=== PATIENT | male | born 1960 ===

== ENCOUNTER → 2016-03-15 | Outpatient (CLI) | payer OTHER ==
--- NOTE | 2016-03-16 05:23 | EEG ---
DATE OF SERVICE: 03/15/2016 INDICATIONS FOR EXAMINATION: This patient is a 55-year-old male being evaluated for syncope versus seizure. Patient with episode of uncontrolled arm movement and twitching. AGE: 55Y EEG FINDINGS: A routine 21-channel, awake digital EEG recording was accomplished utilizing the 10 to 20 international system with bipolar and referential montages. The background activity in the most alert resting state consists of a low to medium amplitude, fairly well-developed and well-sustained 7 to 8 Hz activity over the posterior head regions. This posterior rhythm attenuates to eye opening. There is a small amount of low amplitude 18 to 20 Hz beta activity seen maximally over the anterior head regions. Muscle and movement artifact was observed on a few occasions during the tracing. Hyperventilation was not performed. Photic stimulation at flash frequencies of 2 to 30 Hz produced a minimal occipital driving response. No epileptiform discharges were seen. Towards the latter portion of the tracing, the patient does drift into spontaneous drowsiness. IMPRESSION: This EEG is within normal limits for the patient's age. The EEG failed to reveal any focal, lateralized or epileptiform abnormalities. Clinical correlation is recommended.
== END | disposition home or self-care (01) ==
LOC: NEUROMAIN 12:54
PROVIDERS: ATTEND Psychiatry & Neurology Neurology
DX: R55 Syncope and collapse (principal)
CPT/HCPCS: 95819

== ENCOUNTER 2016-03-19 19:31 | Emergency (ER) | payer OTHER ==
[2016-03-19] MEDS ORDERED: SODIUM CHLORIDE 0.9% 1,000 ML IV STA (19:47)
[2016-03-19] MEDS ORDERED: LORazepam 2 MG/ML SYRINGE IV STA (19:47)
[2016-03-19 19:49] VITALS: RESP 20
[2016-03-19 20:05] LABS: Basophils # (A) 0.1 k/uL (0-0.2); Basophils % (A) 1 %; CH 29.9; Eosinophils # (A) 0.3 k/uL (0-0.7); Eosinophils % (A) 2 %; HCT 45.7 % (39.0-53.0); HDW 2.53; HGB 15.4 gm/dL (13.0-17.5); Luc # (Auto) 0.49; Luc % (Auto) 4; Lymphocytes # (A) 5.1 k/uL (1.0-4.8); Lymphocytes % (A) 44 %; MCHC 33.7 g/dL (31.0-37.0); MCV 85.9 fL (80.0-100.0); Monocytes # (A) 0.7 k/uL (0-1.0); Monocytes % (A) 6 %; Neutrophils # (A) 5.1 k/uL (1.3-7.7); Neutrophils % (A) 43 %; RBC 5.31 m/uL (4.30-5.90); RDW 13.4 % (11.5-15.5); WBC 11.7 k/uL (3.8-10.6); WBC (Perox) 11.94
--- NOTE | 2016-03-19 20:07 | ED ---
General Adult HPI - General Chief complaint: Chest Pain Stated complaint: tremors Time Seen by Provider: 03/19/16 19:45 Source: patient, EMS Mode of arrival: EMS Limitations: no limitations - History of Present Illness Initial comments: 55-year-old male she brought in by EMS shortly before he came in he began again having jerking on the right side. States this third episode he was admitted saw neurologist up in the thumb was told it was anxiety not a seizure. He has had no head injury no headaches no dizziness is had previous computed tomography scan. Has no nausea no vomiting no diarrhea. No chest pain currently has had some cough. - Related Data Home Medications Medication Instructions Recorded Confirmed ALPRAZolam [Xanax] 0.25 mg PO TID PRN 03/19/16 03/19/16 Aspirin [Adult Low Dose Aspirin EC] 81 mg PO DAILY 03/19/16 03/19/16 Citalopram Hydrobromide [CeleXA] 40 mg PO DAILY 03/19/16 03/19/16 Gemfibrozil [Lopid] 600 mg PO AC-BID 03/19/16 03/19/16 Lansoprazole [Prevacid] 15 mg PO DAILY 03/19/16 03/19/16 Lisinopril-Hctz 20-12.5 mg 1 tab PO DAILY 03/19/16 03/19/16 [Zestoretic 20-12.5] metFORMIN HCL ER [Glucophage Xr] 500 mg PO PC-SUPPER 03/19/16 03/19/16 Previous Rx's Medication Instructions Recorded Amoxicillin 500 mg PO Q8H #30 capsule 03/19/16 LORazepam [Ativan] 1 mg PO TID PRN #20 tab 03/19/16 Allergies Allergy/AdvReac Type Severity Reaction Status Date / Time No Known Allergies Allergy Verified 03/19/16 20:19 Review of Systems ROS Statement: Those systems with pertinent positive or pertinent negative responses have been documented in the HPI. ROS Other: All systems not noted in ROS Statement are negative. Constitutional: Denies: fever Eyes: Denies: eye discharge ENT: Denies: ear pain Respiratory: Reports: cough Cardiovascular: Denies: chest pain Gastrointestinal: Denies: abdominal pain, nausea, diarrhea Genitourinary: Denies: urgency, frequency Skin: Denies: rash Neurological: Denies: headache, weakness, numbness Psychiatric: Denies: anxiety, depression Hematological/Lymphatic: Denies: easy bleeding, easy bruising Past Medical History Past Medical History: Diabetes Mellitus History of Any Multi-Drug Resistant Organisms: None Reported Past Surgical History: Unable to Obtain Past Psychological History: Panic Disorder Smoking Status: Former smoker Past Alcohol Use History: None Reported Past Drug Use History: None Reported General Exam Limitations: no limitations General appearance: alert Head exam: Present: atraumatic Eye exam: Present: normal appearance, PERRL, EOMI ENT exam: Present: normal oropharynx, mucous membranes moist Neck exam: Present: normal inspection Respiratory exam: Present: normal lung sounds bilaterally Cardiovascular Exam: Present: regular rate, normal heart sounds GI/Abdominal exam: Present: soft. Absent: tenderness Back exam: Present: normal inspection Neurological exam: Present: alert, CN II-XII intact, other (Final tremoring of the right arm and leg he is fully awake) Psychiatric exam: Present: normal affect, normal mood Skin exam: Present: warm, dry Course Vital Signs 03/19/16 03/19/16 03/19/16 19:46 20:01 20:20 Temperature 98.1 F Pulse Rate 123 H 94 84 Respiratory 20 20 20 Rate Blood Pressure 148/108 129/60 123/65 O2 Sat by Pulse 98 98 97 Oximetry Medical Decision Making - Medical Decision Making Patient's tremor or focal seizure stopped with Ativan. He's had a CAT scan at [place] seen a neurologist who discussed with family he most likely needs an MRI his EEG done this week was normal could be a pseudoseizure as well. Was sent home with treatment for his bronchitis and Ativan. - Lab Data Result diagrams: 03/19/16 19:46 03/19/16 19:46 Lab Results 03/19/16 03/19/16 Range/Units 19:46 19:46 WBC 11.7 H (3.8-10.6) k/uL RBC 5.31 (4.30-5.90) m/uL Hgb 15.4 (13.0-17.5) gm/dL Hct 45.7 (39.0-53.0) % MCV 85.9 (80.0-100.0) fL MCH 29.0 (25.0-35.0) pg MCHC 33.7 (31.0-37.0) g/dL RDW 13.4 (11.5-15.5) % Plt Count 369 (150-450) k/uL Neutrophils % 43 % Lymphocytes % 44 % Monocytes % 6 % Eosinophils % 2 % Basophils % 1 % Neutrophils # 5.1 (1.3-7.7) k/uL Lymphocytes # 5.1 H (1.0-4.8) k/uL Monocytes # 0.7 (0-1.0) k/uL Eosinophils # 0.3 (0-0.7) k/uL Basophils # 0.1 (0-0.2) k/uL Sodium 138 (137-145) mmol/L Potassium 4.5 (3.5-5.1) mmol/L Chloride 99 (98-107) mmol/L Carbon Dioxide 22 (22-30) mmol/L Anion Gap 17 mmol/L BUN 18 (9-20) mg/dL Creatinine 0.96 (0.66-1.25) mg/dL Est GFR (MDRD) Af Amer >60 (>60 ml/min/1.73 sqM) Est GFR (MDRD) Non-Af >60 (>60 ml/min/1.73 sqM) Glucose 98 (74-99) mg/dL Calcium 10.7 H (8.4-10.2) mg/dL Total Bilirubin 0.5 (0.2-1.3) mg/dL AST 25 (17-59) U/L ALT 47 (21-72) U/L Alkaline Phosphatase 73 (38-126) U/L Total Protein 8.1 (6.3-8.2) g/dL Albumin 4.9 (3.5-5.0) g/dL - EKG Data -: EKG Interpreted by Me 03/19/16 20:07 EKG 03/19/20161958 ventricular rate 92 bpm, [place] interval 126 ms, QRS duration 76 ms QT interval 334 ms normal sinus rhythm normal ECG per Disposition Clinical Impression: Tremor, Bronchitis Disposition: HOME SELF-CARE Condition: Good Instructions: Tremors (ED), Acute Bronchitis (ED) Prescriptions: Amoxicillin 500 mg PO Q8H #30 capsule LORazepam [Ativan] 1 mg PO TID PRN #20 tab PRN Reason: Seizures Time of Disposition: 21:16
--- NOTE | 2016-03-19 20:16 | XR ---
EXAMINATION TYPE: XR chest 2V DATE OF EXAM: 03/19/2016 8:05 PM COMPARISON: None HISTORY: 55-year-old male with cough TECHNIQUE: AP and lateral views FINDINGS: Heart is upper limits of normal in size. Lung volumes are low with crowded vascular markings. Mild pe ribronchial cuffing is noted. No consolidation or pleural effusion. IMPRESSION: Hypoventilatory changes. Also, there is peribronchial cuffing which could represent bronchitis or chr onic asthma.
[2016-03-19 20:25] LABS: ALT 47 U/L (21-72); AST 25 U/L (17-59); Alkaline Phosphatase 73 U/L (38-126); Anion Gap 17 mmol/L; Blood Urea Nitrogen 18 mg/dL (9-20); Calcium 10.7 mg/dL (8.4-10.2); Carbon Dioxide 22 mmol/L (22-30); Chloride 99 mmol/L (98-107); Glucose 98 mg/dL (74-99); Non-African American GFR(MDRD) >60 (>60 ml/min/1.73 sqM); Potassium 4.5 mmol/L (3.5-5.1); Sodium 138 mmol/L (137-145); Total Bilirubin 0.5 mg/dL (0.2-1.3); Total Protein 8.1 g/dL (6.3-8.2)
[2016-03-19 21:42] VITALS: BP 120/50; PULSE 86; TEMP 98.5
== END 2016-03-19 21:42 | disposition home or self-care (01) ==
LOC: EC 19:31
DX: R25.1 Tremor, unspecified (principal); J40 Bronchitis, not specified as acute or chronic; E11.9 Type 2 diabetes mellitus without complications; F41.0 Panic disorder [episodic paroxysmal anxiety]; Z79.82 Long term (current) use of aspirin; Z79.899 Other long term (current) drug therapy; Z79.84 Long term (current) use of oral hypoglycemic drugs; Z87.891 Personal history of nicotine dependence
CPT/HCPCS: 36415; 93005; 80053; 85025; 71020; 96374; 96361 ×2; 99285; J2060

== ENCOUNTER 2016-09-28 16:41 | Emergency (ER) | payer OTHER ==
[2016-09-28] MEDS ORDERED: SODIUM CHLORIDE 0.9% 1,000 ML IV ONE (17:55)
[2016-09-28] MEDS ORDERED: ONDANSETRON 4 MG/2 ML VIAL IVP STA (17:55)
--- NOTE | 2016-09-28 17:56 | ED ---
GI Bleed HPI - General Chief complaint: GI Bleed Stated complaint: Abd Pain Time Seen by Provider: 09/28/16 17:25 Source: patient, RN notes reviewed Mode of arrival: ambulatory Limitations: no limitations - History of Present Illness Initial comments: Patient is a 56-year-old male since emergency room for evaluation of rectal bleeding. 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 Patient states he had the "band procedure" done about 8 years ago. Patient states he hasn't had any issues until the past 3 days. Patient states every time he make a bowel movement bright red blood clots are in the stool. patient states he's had diarrhea for the past 2 days. Patient states today he been unable to have a bowel movement. Patient states all he is passing is bright red blood clots. Patient states she has a history of cholecystectomy. Patient denies any other history of abdominal surgeries. Patient denies recent travel outside the country or trying new foods. Patient denies fevers or chills. Patient states he has been nauseous but denies vomiting. Patient denies headache or dizziness. Patient denies chest pain or shortness of breath. Patient denies fevers or chills. Patient denies melena. Patient states he is having extreme rectal pain every time he makes a bowel movement. - Related Data Home Medications Medication Instructions Recorded Confirmed Aspirin [Adult Low Dose Aspirin EC] 81 mg PO DAILY 03/19/16 09/28/16 Citalopram Hydrobromide [CeleXA] 40 mg PO DAILY 03/19/16 09/28/16 Gemfibrozil [Lopid] 600 mg PO AC-BID 03/19/16 09/28/16 Lansoprazole [Prevacid] 15 mg PO DAILY 03/19/16 09/28/16 metFORMIN HCL ER [Glucophage Xr] 500 mg PO PC-SUPPER 03/19/16 09/28/16 ALPRAZolam [Xanax] 0.25 mg PO TID PRN 09/28/16 09/28/16 HYDROcodone/APAP 7.5-325MG [[place] 0.5 - 1 tab PO Q4H PRN 09/28/16 09/28/16 7.5-325] Lisinopril [Zestril] 20 mg PO DAILY 09/28/16 09/28/16 lamoTRIgine [LaMICtal] 25 mg PO BID 09/28/16 09/28/16 Previous Rx's Medication Instructions Recorded Hydrocortisone Suppository 25 mg RECTAL BID PRN #10 supp 09/28/16 [Anusol-Hc] Allergies Allergy/AdvReac Type Severity Reaction Status Date / Time No Known Allergies Allergy Verified 09/28/16 18:39 Review of Systems ROS Statement: Those systems with pertinent positive or pertinent negative responses have been documented in the HPI. ROS Other: All systems not noted in ROS Statement are negative. Past Medical History Past Medical History: Diabetes Mellitus, Hyperlipidemia, Hypertension History of Any Multi-Drug Resistant Organisms: None Reported Past Surgical History: Cholecystectomy Additional Past Surgical History / Comment(s): hemmeroidectomy Past Psychological History: Depression, Panic Disorder Smoking Status: Former smoker Past Alcohol Use History: None Reported Past Drug Use History: None Reported General Exam - General Exam Comments Initial Comments: Laying in exam room, no acute distress. Limitations: no limitations General appearance: alert, in no apparent distress Head exam: Present: atraumatic, normocephalic, normal inspection Eye exam: Present: normal appearance ENT exam: Present: normal exam Neck exam: Present: normal inspection Respiratory exam: Present: normal lung sounds bilaterally. Absent: respiratory distress Cardiovascular Exam: Present: regular rate, normal rhythm, normal heart sounds GI/Abdominal exam: Present: soft, normal bowel sounds. Absent: distended, tenderness, guarding, rebound, rigid Rectal exam: Present: normal rectal tone. Absent: hemorrhoids Extremities exam: Present: normal inspection Back exam: Present: normal inspection Neurological exam: Present: alert, oriented X3, CN II-XII intact, normal gait Psychiatric exam: Present: normal affect, normal mood Skin exam: Present: warm, dry, intact, normal color. Absent: rash Course Vital Signs 09/28/16 09/28/16 09/28/16 16:48 18:47 19:17 Temperature 99.1 F Pulse Rate 83 72 80 Respiratory 18 16 16 Rate Blood Pressure 132/71 113/56 115/56 O2 Sat by Pulse 98 95 94 L Oximetry 09/28/16 20:23 Temperature 98.9 F Pulse Rate 73 Respiratory 18 Rate Blood Pressure 120/65 O2 Sat by Pulse 97 Oximetry Medical Decision Making - Medical Decision Making Patient's a 56-year-old male presents emergency room for evaluation of rectal bleeding. Patient complaining of extreme rectal pain. Patient given Anusol. Lab work shows no concerning findings. Patient may have a fissure. Patient advised to follow-up with general surgeon. Patient be sent home with Anusol suppositories. Patient states he understands everything that was discussed with him. Return parameters discussed. Case discussed with Dr. Lozano. - Lab Data Result diagrams: 09/28/16 18:05 09/28/16 18:05 Lab Results 09/28/16 09/28/16 09/28/16 Range/Units 17:57 17:57 18:05 WBC 8.5 (3.8-10.6) k/uL RBC 4.84 (4.30-5.90) m/uL Hgb 14.7 (13.0-17.5) gm/dL Hct 41.8 (39.0-53.0) % MCV 86.3 (80.0-100.0) fL MCH 30.4 (25.0-35.0) pg MCHC 35.2 (31.0-37.0) g/dL RDW 14.3 (11.5-15.5) % Plt Count 359 (150-450) k/uL Neutrophils % 49 % Lymphocytes % 36 % Monocytes % 8 % Eosinophils % 4 % Basophils % 1 % Neutrophils # 4.2 (1.3-7.7) k/uL Lymphocytes # 3.1 (1.0-4.8) k/uL Monocytes # 0.7 (0-1.0) k/uL Eosinophils # 0.3 (0-0.7) k/uL Basophils # 0.1 (0-0.2) k/uL PT (9.0-12.0) sec INR (<1.2) APTT (22.0-30.0) sec Sodium (137-145) mmol/L Potassium (3.5-5.1) mmol/L Chloride (98-107) mmol/L Carbon Dioxide (22-30) mmol/L Anion Gap mmol/L BUN (9-20) mg/dL Creatinine (0.66-1.25) mg/dL Est GFR (MDRD) Af Amer (>60 ml/min/1.73 sqM) Est GFR (MDRD) Non-Af (>60 ml/min/1.73 sqM) Glucose (74-99) mg/dL Calcium (8.4-10.2) mg/dL Total Bilirubin (0.2-1.3) mg/dL AST (17-59) U/L ALT (21-72) U/L Alkaline Phosphatase (38-126) U/L Total Protein (6.3-8.2) g/dL Albumin (3.5-5.0) g/dL Urine Color Yellow Urine Appearance Clear (Clear) Urine pH 5.5 (5.0-8.0) Ur Specific [place] 1.022 (1.001-1.035) Urine Protein Negative (Negative) Urine Glucose (UA) Negative (Negative) Urine Ketones Negative (Negative) Urine Blood Negative (Negative) Urine Nitrite Negative (Negative) Urine Bilirubin Negative (Negative) Urine Urobilinogen <2.0 (<2.0) mg/dL Ur Leukocyte Esterase Negative (Negative) Stool Occult Blood Positive (Negative) 09/28/16 09/28/16 Range/Units 18:05 18:05 WBC (3.8-10.6) k/uL RBC (4.30-5.90) m/uL Hgb (13.0-17.5) gm/dL Hct (39.0-53.0) % MCV (80.0-100.0) fL MCH (25.0-35.0) pg MCHC (31.0-37.0) g/dL RDW (11.5-15.5) % Plt Count (150-450) k/uL Neutrophils % % Lymphocytes % % Monocytes % % Eosinophils % % Basophils % % Neutrophils # (1.3-7.7) k/uL Lymphocytes # (1.0-4.8) k/uL Monocytes # (0-1.0) k/uL Eosinophils # (0-0.7) k/uL Basophils # (0-0.2) k/uL PT 10.4 (9.0-12.0) sec INR 1.0 (<1.2) APTT 25.0 (22.0-30.0) sec Sodium 142 (137-145) mmol/L Potassium 4.3 (3.5-5.1) mmol/L Chloride 105 (98-107) mmol/L Carbon Dioxide 24 (22-30) mmol/L Anion Gap 13 mmol/L BUN 21 H (9-20) mg/dL Creatinine 0.80 (0.66-1.25) mg/dL Est GFR (MDRD) Af Amer >60 (>60 ml/min/1.73 sqM) Est GFR (MDRD) Non-Af >60 (>60 ml/min/1.73 sqM) Glucose 127 H (74-99) mg/dL Calcium 9.9 (8.4-10.2) mg/dL Total Bilirubin 0.3 (0.2-1.3) mg/dL AST 24 (17-59) U/L ALT 47 (21-72) U/L Alkaline Phosphatase 111 (38-126) U/L Total Protein 7.3 (6.3-8.2) g/dL Albumin 4.3 (3.5-5.0) g/dL Urine Color Urine Appearance (Clear) Urine pH (5.0-8.0) Ur Specific [place] (1.001-1.035) Urine Protein (Negative) Urine Glucose (UA) (Negative) Urine Ketones (Negative) Urine Blood (Negative) Urine Nitrite (Negative) Urine Bilirubin (Negative) Urine Urobilinogen (<2.0) mg/dL Ur Leukocyte Esterase (Negative) Stool Occult Blood (Negative) - Radiology Data Radiology results: report reviewed, image reviewed Disposition Clinical Impression: Rectal bleeding Disposition: HOME SELF-CARE Condition: Good Instructions: Rectal Bleeding (ED) Additional Instructions: Use Loni-kateryna as needed. Sitz baths. Take stool softener daily. Please follow up with general surgeon or primary care provider. If any new symptom arises or symptoms worsen, return to ER as soon as possible. Prescriptions: Hydrocortisone Suppository [Anusol-Hc] 25 mg RECTAL BID PRN #10 supp PRN Reason: Pain Referrals: Amor Chavez MD [Primary Care Provider] - 1-2 days Nikita Lutz MD [STAFF PHYSICIAN] - 1-2 days Time of Disposition: 19:52
[2016-09-28 18:20] LABS: Basophils # (A) 0.1 k/uL (0-0.2); Basophils % (A) 1 %; CHCM 34.9; Eosinophils # (A) 0.3 k/uL (0-0.7); Eosinophils % (A) 4 %; HCT 41.8 % (39.0-53.0); HDW 2.74; HGB 14.7 gm/dL (13.0-17.5); Luc % (Auto) 2; Lymphocytes # (A) 3.1 k/uL (1.0-4.8); Lymphocytes % (A) 36 %; MCH 30.4 pg (25.0-35.0); MCHC 35.2 g/dL (31.0-37.0); MCV 86.3 fL (80.0-100.0); Mean Platelet Volume 7.7; Monocytes # (A) 0.7 k/uL (0-1.0); Monocytes % (A) 8 %; Neutrophils # (A) 4.2 k/uL (1.3-7.7); Neutrophils % (A) 49 %; RBC 4.84 m/uL (4.30-5.90); RDW 14.3 % (11.5-15.5); WBC 8.5 k/uL (3.8-10.6); WBC (Perox) 8.16
[2016-09-28 18:21] LABS: Appearance,Urine Clear (Clear); Bilirubin,Urine Negative (Negative); Glucose,Urine (UA) Negative (Negative); Ketones,Urine Negative (Negative); Leukocyte Esterase,Urine Negative (Negative); Nitrite,Urine Negative (Negative); PH, Urine 5.5 (5.0-8.0); Protein,Urine Negative (Negative); Specific Gravity,Urine 1.022 (1.001-1.035); UA Billing (MACRO vs. MICRO) CHEM; Urobilinogen,Urine <2.0 mg/dL (<2.0)
[2016-09-28 18:28] LABS: ALT 47 U/L (21-72); AST 24 U/L (17-59); Alkaline Phosphatase 111 U/L (38-126); Anion Gap 13 mmol/L; Blood Urea Nitrogen 21 mg/dL (9-20); Calcium 9.9 mg/dL (8.4-10.2); Carbon Dioxide 24 mmol/L (22-30); Chloride 105 mmol/L (98-107); Glucose 127 mg/dL (74-99); Non-African American GFR(MDRD) >60 (>60 ml/min/1.73 sqM); Potassium 4.3 mmol/L (3.5-5.1); Sodium 142 mmol/L (137-145); Total Bilirubin 0.3 mg/dL (0.2-1.3); Total Protein 7.3 g/dL (6.3-8.2)
[2016-09-28 18:30] LABS: Prothrombin Time 10.4 sec (9.0-12.0)
--- NOTE | 2016-09-28 18:34 | XR ---
EXAMINATION TYPE: XR KUB DATE OF EXAM: 09/28/2016 COMPARISON: NONE HISTORY: Pain TECHNIQUE: Single supine KUB image of the abdomen is obtained FINDINGS: Small bowel demonstrates no evidence for dilatation or air fluid levels. Gas and fecal material is seen in non-distended colon. No convincing evidence for pneumoperitoneum. No unusual calcifications. The lung bases are clear. The osseous structures are intact. IMPRESSION: 1. Overall nonobstructive bowel gas pattern.
[2016-09-28] MEDS ORDERED: HYDROCORTISONE SUPPOSITORY 25 MG SUPP RECTAL STA (19:46)
[2016-09-28 20:17] VITALS: RESP 18; TEMP 98.9
[2016-09-28 20:24] VITALS: BP 120/65; PULSE 73
== END 2016-09-28 20:14 | disposition home or self-care (01) ==
LOC: EC 16:41
DX: K62.5 Hemorrhage of anus and rectum (principal); E11.9 Type 2 diabetes mellitus without complications; E78.5 Hyperlipidemia, unspecified; I10 Essential (primary) hypertension; F32.9 Major depressive disorder, single episode, unspecified; Z90.49 Acquired absence of other specified parts of digestive tract; Z87.891 Personal history of nicotine dependence; Z79.82 Long term (current) use of aspirin; Z79.84 Long term (current) use of oral hypoglycemic drugs; Z79.899 Other long term (current) drug therapy
CPT/HCPCS: 99284; 96374; 36415; 80053; 85025; 85610; 85730; 82272; 81003; 87086; 74000; J2405

== ENCOUNTER 2017-01-03 12:10 | Observation (INO) | payer OTHER ==
[2017-01-03] MEDS ORDERED: SODIUM CHLORIDE 0.9% 1,000 ML IV STA (12:15)
[2017-01-03] MEDS ORDERED: MORPHINE SULFATE 10 MG/ML SYRINGE IVP STA (12:24)
--- NOTE | 2017-01-03 12:25 | ED ---
General Adult HPI - General Stated complaint: Chest Pain Time Seen by Provider: 01/03/17 12:14 Source: patient, EMS, RN notes reviewed, old records reviewed - History of Present Illness Initial comments: 56-year-old male presents from outpatient surgical Center with chief complaint of chest pain. Patient was undergoing outpatient operation for anal fissures. After he awoke from the procedure, he had chest pain, describes it as bilateral and substernal chest pressure and heaviness. Also complains of some epigastric pain. This pain is associated with shortness of breath. No nausea, no vomiting. Patient denies any diaphoresis. Denies lightheadedness. Patient is uncertain if he was intubated for the procedure. Patient denies any previous heart history. He does have a history of hypertension and diabetes. - Related Data Home Medications Medication Instructions Recorded Confirmed Gemfibrozil [Lopid] 600 mg PO AC-BID 03/19/16 01/03/17 Lansoprazole [Prevacid] 15 mg PO DAILY 03/19/16 01/03/17 metFORMIN HCL ER [Glucophage Xr] 500 mg PO PC-SUPPER 03/19/16 01/03/17 Lisinopril [Zestril] 20 mg PO DAILY 09/28/16 01/03/17 Calcium Carbonate [Calcium] 600 mg PO DAILY 01/03/17 01/03/17 Magnesium 200 mg PO DAILY 01/03/17 01/03/17 Allergies Allergy/AdvReac Type Severity Reaction Status Date / Time No Known Allergies Allergy Verified 01/03/17 13:16 Review of Systems ROS Statement: Those systems with pertinent positive or pertinent negative responses have been documented in the HPI. ROS Other: All systems not noted in ROS Statement are negative. Past Medical History Past Medical History: Diabetes Mellitus, Hyperlipidemia, Hypertension History of Any Multi-Drug Resistant Organisms: None Reported Past Surgical History: Cholecystectomy Additional Past Surgical History / Comment(s): hemmeroidectomy Past Psychological History: Depression, Panic Disorder Smoking Status: Former smoker Past Alcohol Use History: None Reported Past Drug Use History: None Reported General Exam General appearance: alert, in no apparent distress Head exam: Present: atraumatic, normocephalic Eye exam: Present: normal appearance, PERRL ENT exam: Present: normal exam Neck exam: Present: normal inspection. Absent: tenderness, meningismus Respiratory exam: Present: normal lung sounds bilaterally. Absent: respiratory distress, wheezes Cardiovascular Exam: Present: regular rate, normal rhythm GI/Abdominal exam: Present: soft, tenderness (Epigastric tenderness to palpation ). Absent: distended, guarding, rebound Extremities exam: Present: normal inspection, normal capillary refill. Absent: pedal edema Neurological exam: Present: alert, oriented X3. Absent: motor sensory deficit Psychiatric exam: Present: normal affect, normal mood Skin exam: Present: warm, dry, intact. Absent: cyanosis, diaphoretic Course Vital Signs 01/03/17 01/03/17 12:15 13:30 Temperature 96.9 F L Pulse Rate 79 80 Respiratory 18 18 Rate Blood Pressure 125/74 120/60 O2 Sat by Pulse 97 97 Oximetry - Reevaluation(s) Reevaluation #1: 01/03/17 13:52 On reevaluation, patient is chest pain-free EKG Findings - EKG Comments: EKG Findings:: EKG shows normal sinus rhythm, no ST segment elevation or depression, ventricular rate 75, purulent 138, QRS duration 76, QTC 417 Medical Decision Making - Medical Decision Making 56-year-old male presenting with chest pain from outpatient surgery center. EKG shows no ST segment elevation or depression. Laboratory studies reveal magnesium 1.5 which is replaced. Troponin is negative. Chest x-ray shows cardiomegaly, no acute findings. Patient will be placed in observation for chest pain rule out. - Lab Data Result diagrams: 01/03/17 12:24 01/03/17 12:24 Lab Results 01/03/17 01/03/17 01/03/17 Range/Units 12:24 12:24 12:24 WBC 9.1 (3.8-10.6) k/uL RBC 4.88 (4.30-5.90) m/uL Hgb 14.3 (13.0-17.5) gm/dL Hct 43.2 (39.0-53.0) % MCV 88.4 (80.0-100.0) fL MCH 29.2 (25.0-35.0) pg MCHC 33.1 (31.0-37.0) g/dL RDW 13.3 (11.5-15.5) % Plt Count 285 (150-450) k/uL Neutrophils % 66 % Lymphocytes % 24 % Monocytes % 7 % Eosinophils % 1 % Basophils % 0 % Neutrophils # 6.0 (1.3-7.7) k/uL Lymphocytes # 2.2 (1.0-4.8) k/uL Monocytes # 0.6 (0-1.0) k/uL Eosinophils # 0.1 (0-0.7) k/uL Basophils # 0.0 (0-0.2) k/uL PT (9.0-12.0) sec INR (<1.2) APTT (22.0-30.0) sec Sodium 140 (137-145) mmol/L Potassium 4.2 (3.5-5.1) mmol/L Chloride 108 H (98-107) mmol/L Carbon Dioxide 22 (22-30) mmol/L Anion Gap 10 mmol/L BUN 20 (9-20) mg/dL Creatinine 0.80 (0.66-1.25) mg/dL Est GFR (MDRD) Af Amer >60 (>60 ml/min/1.73 sqM) Est GFR (MDRD) Non-Af >60 (>60 ml/min/1.73 sqM) Glucose 132 H (74-99) mg/dL Calcium 9.1 (8.4-10.2) mg/dL Magnesium 1.5 L (1.6-2.3) mg/dL Total Bilirubin 0.3 (0.2-1.3) mg/dL AST 19 (17-59) U/L ALT 35 (21-72) U/L Alkaline Phosphatase 66 (38-126) U/L Total Creatine Kinase 101 (55-170) U/L CK-MB (CK-2) 1.4 (0.0-2.4) ng/mL CK-MB (CK-2) Rel Index 1.4 Troponin I <0.012 (0.000-0.034) ng/mL NT-Pro-B Natriuret Pep pg/mL Total Protein 6.6 (6.3-8.2) g/dL Albumin 3.9 (3.5-5.0) g/dL Amylase <30 L (30-110) U/L Lipase 69 (23-300) U/L 01/03/17 01/03/17 Range/Units 12:24 12:24 WBC (3.8-10.6) k/uL RBC (4.30-5.90) m/uL Hgb (13.0-17.5) gm/dL Hct (39.0-53.0) % MCV (80.0-100.0) fL MCH (25.0-35.0) pg MCHC (31.0-37.0) g/dL RDW (11.5-15.5) % Plt Count (150-450) k/uL Neutrophils % % Lymphocytes % % Monocytes % % Eosinophils % % Basophils % % Neutrophils # (1.3-7.7) k/uL Lymphocytes # (1.0-4.8) k/uL Monocytes # (0-1.0) k/uL Eosinophils # (0-0.7) k/uL Basophils # (0-0.2) k/uL PT 11.1 (9.0-12.0) sec INR 1.1 (<1.2) APTT 25.2 (22.0-30.0) sec Sodium (137-145) mmol/L Potassium (3.5-5.1) mmol/L Chloride (98-107) mmol/L Carbon Dioxide (22-30) mmol/L Anion Gap mmol/L BUN (9-20) mg/dL Creatinine (0.66-1.25) mg/dL Est GFR (MDRD) Af Amer (>60 ml/min/1.73 sqM) Est GFR (MDRD) Non-Af (>60 ml/min/1.73 sqM) Glucose (74-99) mg/dL Calcium (8.4-10.2) mg/dL Magnesium (1.6-2.3) mg/dL Total Bilirubin (0.2-1.3) mg/dL AST (17-59) U/L ALT (21-72) U/L Alkaline Phosphatase (38-126) U/L Total Creatine Kinase (55-170) U/L CK-MB (CK-2) (0.0-2.4) ng/mL CK-MB (CK-2) Rel Index Troponin I (0.000-0.034) ng/mL NT-Pro-B Natriuret Pep 26 pg/mL Total Protein (6.3-8.2) g/dL Albumin (3.5-5.0) g/dL Amylase (30-110) U/L Lipase (23-300) U/L Disposition Clinical Impression: Chest pain Disposition: ADMITTED IP TO THIS HOSP Condition: Stable Referrals: Howard Chavira MD [STAFF PHYSICIAN] - 1-2 days Decision to Admit Reason: Admit from EC Decision Date: 01/03/17 Decision Time: 13:53
[2017-01-03 12:40] LABS: Basophils % (A) 0 %; CH 29.9; CHCM 33.9; Eosinophils # (A) 0.1 k/uL (0-0.7); Eosinophils % (A) 1 %; HCT 43.2 % (39.0-53.0); HDW 2.56; HGB 14.3 gm/dL (13.0-17.5); Luc # (Auto) 0.15; Luc % (Auto) 2; Lymphocytes # (A) 2.2 k/uL (1.0-4.8); Lymphocytes % (A) 24 %; MCH 29.2 pg (25.0-35.0); MCHC 33.1 g/dL (31.0-37.0); MCV 88.4 fL (80.0-100.0); Mean Platelet Volume 7.3; Monocytes # (A) 0.6 k/uL (0-1.0); Monocytes % (A) 7 %; Neutrophils % (A) 66 %; RBC 4.88 m/uL (4.30-5.90); RDW 13.3 % (11.5-15.5); WBC 9.1 k/uL (3.8-10.6); WBC (Perox) 8.47
[2017-01-03 12:48] LABS: INR 1.1 (<1.2); Partial Thromboplastin Time 25.2 sec (22.0-30.0); Prothrombin Time 11.1 sec (9.0-12.0)
[2017-01-03 12:50] LABS: ALT 35 U/L (21-72); AST 19 U/L (17-59); Alkaline Phosphatase 66 U/L (38-126); Amylase <30 U/L (30-110); Anion Gap 10 mmol/L; Blood Urea Nitrogen 20 mg/dL (9-20); Calcium 9.1 mg/dL (8.4-10.2); Carbon Dioxide 22 mmol/L (22-30); Chloride 108 mmol/L (98-107); Glucose 132 mg/dL (74-99); Magnesium 1.5 mg/dL (1.6-2.3); Non-African American GFR(MDRD) >60 (>60 ml/min/1.73 sqM); Potassium 4.2 mmol/L (3.5-5.1); Sodium 140 mmol/L (137-145); Total Bilirubin 0.3 mg/dL (0.2-1.3); Total Protein 6.6 g/dL (6.3-8.2)
[2017-01-03 12:59] LABS: Creatine Kinase 101 U/L (55-170)
--- NOTE | 2017-01-03 13:02 | XR ---
EXAMINATION TYPE: XR chest 2V DATE OF EXAM: 01/03/2017 COMPARISON: Prior chest x-ray 03/19/2016, 10/31/2016 HISTORY: Shortness of breath TECHNIQUE: Frontal and lateral views of the chest are obtained. FINDINGS: There is no focal air space opacity, pleural effusion, or pneumothorax seen. Some strand- like densities are present at the left lung base. The cardiac silhouette size is stable and enlarged. There is eventration of the right hemidiaphragm. The patient is rotated. The osseous structures are intact. IMPRESSION: There may be some basilar atelectasis. Stable cardiomegaly. Rotated exam. Follow-up as i ndicated.
[2017-01-03] MEDS ORDERED: MAGNESIUM SULFATE-D5W PMX 1 GM in DEXTROSE/WATER 1 100ML.BAG IVPB ONE (13:11)
[2017-01-03] MEDS ORDERED: ASPIRIN 325 MG TAB PO STA (13:11)
[2017-01-03 13:12] LABS: Creatine Kinase MB 1.4 ng/mL (0.0-2.4); Troponin I <0.012 ng/mL (0.000-0.034)
[2017-01-03] MEDS ORDERED: ONDANSETRON 4 MG/2 ML VIAL IVP PRN (13:48)
[2017-01-03] MEDS ORDERED: MORPHINE SULFATE 10 MG/ML SYRINGE IV PRN (13:48)
[2017-01-03] MEDS ORDERED: NALOXONE 0.4 MG/ML 1 ML VIAL IV PRN (13:48)
[2017-01-03] MEDS ORDERED: ACETAMINOPHEN TAB 325 MG TAB PO PRN (13:48)
--- NOTE | 2017-01-03 15:48 | P.HPIM ---
History of Present Illness Patient is a pleasant 56-year-old gentleman came in with complaints of chest pain patient came in for surgery foraminal fissures postprocedure patient started having pressure-like chest pain in the retrosternal area nonradiating 5 x 10 in severity lasted for a couple hours until he received morphine. Patient' s chest pain is nonpruritic in nature not associated with food patient takes lansoprazole at home patient denied any lightheadedness associated with that patient denied any shortness of breath diaphoresis associated with that. Patient denied any cough. Unsure whether patient was intubated for the procedure are not. Patient had a stress us about couple months ago which was essentially negative. Patient probably had stress us as an outpatient Review of Systems REVIEW OF SYSTEMS: CONSTITUTIONAL: No fever, no malaise, no fatigue. HEENT: No recent visual problems or hearing problems. Denied any sore throat. CARDIOVASCULAR: No orthopnea, PND, no palpitations, no syncope. PULMONARY: No shortness of breath, no cough, no hemoptysis. GASTROINTESTINAL: No diarrhea, no nausea, no vomiting, no abdominal pain. Normoactive bowel sounds. NEUROLOGICAL: No headaches, no weakness, no numbness. HEMATOLOGICAL: Denies any bleeding or petechiae. GENITOURINARY: Denies any burning micturition, frequency, or urgency. MUSCULOSKELETAL/RHEUMATOLOGICAL: Denies any joint pain, swelling, or any muscle pain. ENDOCRINE: Denies any polyuria or polydipsia. The rest of the 14-point review of systems is negative. Past Medical History Past Medical History: Diabetes Mellitus, GERD/Reflux, Hyperlipidemia, Hypertension Additional Past Medical History / Comment(s): DEPRESSION/PANIC DISOREDER History of Any Multi-Drug Resistant Organisms: None Reported Past Surgical History: Cholecystectomy Additional Past Surgical History / Comment(s): HEMMORHOID SX, NEDRA SHOULDER SX "BONE SHAVED" Past Anesthesia/Blood Transfusion Reactions: Previous Problems w/ Anesthesia Additional Past Anesthesia/Blood Transfusion Reaction / Comment(s): PT STATED IN OCT WAS TO HAVE A SX AND "WHEN INTUBATED HE ASPIRATED AND BP DROPPED AND DIFFICULT TO AROUSE HE STATED SX WAS CANCELED" Smoking Status: Never smoker - Past Family History Mother Family Medical History: Cancer, Thyroid Disorder Additional Family Medical History / Comment(s): THYROID CANCER Father Family Medical History: Diabetes Mellitus Medications and Allergies Home Medications Medication Instructions Recorded Confirmed Type Gemfibrozil [Lopid] 600 mg PO AC-BID 03/19/16 01/03/17 History Lansoprazole [Prevacid] 15 mg PO DAILY 03/19/16 01/03/17 History metFORMIN HCL ER [Glucophage Xr] 500 mg PO PC-SUPPER 03/19/16 01/03/17 History Lisinopril [Zestril] 20 mg PO DAILY 09/28/16 01/03/17 History Calcium Carbonate [Calcium] 600 mg PO DAILY 01/03/17 01/03/17 History Magnesium 200 mg PO DAILY 01/03/17 01/03/17 History Allergies Allergy/AdvReac Type Severity Reaction Status Date / Time No Known Allergies Allergy Verified 01/03/17 13:16 Physical Exam Vitals: Vital Signs Temp Pulse Pulse Resp BP BP Pulse Ox 01/03/17 15:09 97.5 F L 69 18 120/72 95 01/03/17 14:25 67 18 118/66 97 01/03/17 13:30 80 18 120/60 97 01/03/17 12:15 96.9 F L 79 18 125/74 97 Intake and Output 01/03/17 01/03/17 01/03/17 06:59 14:59 22:59 Other: Weight 96.162 kg 96.6 kg Patient Weight 01/04/17 06:59 Weight 96.6 kg PHYSICAL EXAMINATION: GENERAL: The patient is alert and oriented x3, not in any acute distress. Well developed, well nourished. HEENT: Pupils are round and equally reacting to light. EOMI. No scleral icterus. No conjunctival pallor. Normocephalic, atraumatic. No pharyngeal erythema. No thyromegaly. CARDIOVASCULAR: S1 and S2 present. No murmurs, rubs, or gallops. PULMONARY: Chest is clear to auscultation, no wheezing or crackles. ABDOMEN: Soft, nontender, nondistended, normoactive bowel sounds. No palpable organomegaly. MUSCULOSKELETAL: No joint swelling or deformity. EXTREMITIES: No cyanosis, clubbing, or pedal edema. NEUROLOGICAL: Gross neurological examination did not reveal any focal deficits. SKIN: No rashes. Results CBC & Chem 7: 01/03/17 12:24 01/03/17 12:24 Labs: Abnormal Lab Results - Last 24 Hours (Table) 01/03/17 Range/Units 12:24 Chloride 108 H (98-107) mmol/L Glucose 132 H (74-99) mg/dL Magnesium 1.5 L (1.6-2.3) mg/dL Amylase <30 L (30-110) U/L Assessment and Plan Plan: 1 chest pain: We'll rule out acute coronary syndromes patient had a recent stresses may not need a repeat stress test. unsure of the exact etiology can be from acid reflux. Patient will restart back on lansoprazole. #2 hypertension patient will be started back on lisinopril #3 type 2 diabetes mellitus: Hold off on metformin will patient was started on sliding scale insulin. #4 hyperlipidemia #5 obesity: Counseling was provided #6 and will fissures for which patient underwent surgery today.
[2017-01-03] MEDS: GEMFIBROZIL 600 MG TAB PO SCH (17:12)
[2017-01-03 17:26] LABS: Glucose,Whole Blood 153 mg/dL (75-99)
[2017-01-03] MEDS ORDERED: metFORMIN 500 MG TAB PO SCH (17:30)
[2017-01-03 19:10] LABS: Creatine Kinase MB 1.8 ng/mL (0.0-2.4); Troponin I <0.012 ng/mL (0.000-0.034)
[2017-01-03 19:52] LABS: Creatine Kinase 141 U/L (55-170)
[2017-01-03 20:55] LABS: Glucose,Whole Blood 108 mg/dL (75-99)
[2017-01-03] MEDS ORDERED: ALPRAZolam 0.5 MG TAB PO STA (22:55)
[2017-01-03] MEDS: DOCUSATE 100 MG CAP PO SCH (23:24)
[2017-01-04 00:53] LABS: Creatine Kinase 167 U/L (55-170)
[2017-01-04 01:06] LABS: Creatine Kinase MB 1.6 ng/mL (0.0-2.4); Troponin I <0.012 ng/mL (0.000-0.034)
[2017-01-04 05:51] LABS: Basophils # (A) 0.1 k/uL (0-0.2); Basophils % (A) 1 %; CH 29.3; CHCM 32.5; Eosinophils # (A) 0.4 k/uL (0-0.7); Eosinophils % (A) 4 %; HCT 40.8 % (39.0-53.0); HDW 2.43; Luc # (Auto) 0.23; Luc % (Auto) 3; Lymphocytes # (A) 3.5 k/uL (1.0-4.8); Lymphocytes % (A) 39 %; MCV 90.6 fL (80.0-100.0); Mean Platelet Volume 7.6; Monocytes # (A) 0.7 k/uL (0-1.0); Monocytes % (A) 8 %; Neutrophils % (A) 45 %; RDW 14.6 % (11.5-15.5); WBC (Perox) 8.74
[2017-01-04 06:17] LABS: ALT 30 U/L (21-72); AST 22 U/L (17-59); Alkaline Phosphatase 53 U/L (38-126); Anion Gap 4 mmol/L; Blood Urea Nitrogen 22 mg/dL (9-20); Calcium 8.9 mg/dL (8.4-10.2); Carbon Dioxide 24 mmol/L (22-30); Chloride 108 mmol/L (98-107); Glucose 124 mg/dL (74-99); Magnesium 1.8 mg/dL (1.6-2.3); Non-African American GFR(MDRD) >60 (>60 ml/min/1.73 sqM); Potassium 4.7 mmol/L (3.5-5.1); Sodium 136 mmol/L (137-145); Total Bilirubin 0.3 mg/dL (0.2-1.3)
[2017-01-04 07:13] LABS: Glucose,Whole Blood 138 mg/dL (75-99)
[2017-01-04] MEDS ORDERED: PANTOPRAZOLE 40 MG TABLET PO SCH (07:30)
[2017-01-04 08:39] VITALS: RESP 18
[2017-01-04] MEDS ORDERED: LISINOPRIL 20 MG TAB PO SCH (09:00)
[2017-01-04] MEDS: DOCUSATE 100 MG CAP PO SCH (10:08)
[2017-01-04] MEDS: GEMFIBROZIL 600 MG TAB PO SCH (10:08)
[2017-01-04 11:41] VITALS: BP 114/59; PULSE 68; TEMP 98.3
[2017-01-04 11:52] LABS: Glucose,Whole Blood 132 mg/dL (75-99)
[2017-01-04] MEDS ORDERED: MAGNESIUM OXIDE 400 MG TAB PO SCH (12:00)
--- NOTE | 2017-01-04 13:27 | P.CRDCN ---
History of Present Illness Consult date: 01/04/17 History of present illness: This is a 56-year-old male past medical history significant for diabetes mellitus, hypertension and hyperlipidemia. He sees Dr. Rosa as an outpatient. He was sent to the hospital from outpatient surgery Center after undergoing sphincterectomy. Apparently when he was being woken up from anesthesia he had an episode of chest pain and shortness of breath. He states this pain was midsternal epigastric region described as heaviness he states this pain persisted until he presented here to the emergency department was given morphine IV. He states this is his second attempt at undergoing this surgery. The first time he attempted he had a reaction to the anesthesia. After that he was recommended to see a shift superintendent caustic cresylate prior to this attempt. He saw Dr. Harvey and underwent Lexiscan stress test and echocardiogram April 2016. Both tests were unremarkable and showed no signs of reversible ischemia and he was given the okay to proceed with the procedure. At the time of my exam he is seen sleeping in bed with family at the bedside. He denies any further episodes of chest pain or shortness of breath. He denies associated dizziness, palpitations, diaphoresis or nausea/vomiting. EKG on arrival shows sinus mechanism with flattening of the T waves in inferior- lateral leads. This is consistent with previous EKG on file from March 2016. Chest x-ray shows basilar atelectasis, stable cardiomegaly. Cardiac enzymes negative 3, potassium 4.7, magnesium 1.8, UUN 22, creatinine 0.87, hemoglobin 13. Blood pressure 106/63 with a heart rate of 71. Current cardiac medications include lisinopril to 20 mg daily and Lopid 600 mg twice a day. Review of Systems CONSTITUTIONAL: Denies fever. Denies chills. EYES: Denies blurred vision. Denies vision changes. Denies eye pain. EARS, NOSE, MOUTH & THROAT: Denies headache. Denies sore throat. Denies ear pain. CARDIOVASCULAR: Complains of one episode of chest pain with shortness of breath , resolved. Denies orthopnea. Denies PND. Denies palpitations. RESPIRATORY: Denies cough. GASTROINTESTINAL: Denies abdominal pain. Denies diarrhea. Denies constipation. Denies nausea. Denies vomitng. MUSCULOSKELETAL: Denies myalgias. INTEGUMENTARY: Denies pruitis. Denies rash. NEUROLOGIC: Denies numbness. Denies tingling. Denies weakness. PSYCHIATRIC: Denies anxiety. Denies depression. ENDOCRINE: Denies fatigue. Denies weight change. Denies polydipsia. Denies polyurina. GENITOURINARY: Denies burning, hematuria or urgency with micturation. HEMATOLOGIC: Denies history of anemia. Denies bleeding. Past Medical History Past Medical History: Diabetes Mellitus, GERD/Reflux, Hyperlipidemia, Hypertension Additional Past Medical History / Comment(s): DEPRESSION/PANIC DISOREDER History of Any Multi-Drug Resistant Organisms: None Reported Past Surgical History: Cholecystectomy Additional Past Surgical History / Comment(s): HEMMORHOID SX, NEDRA SHOULDER SX "BONE SHAVED" Past Anesthesia/Blood Transfusion Reactions: Previous Problems w/ Anesthesia Additional Past Anesthesia/Blood Transfusion Reaction / Comment(s): PT STATED IN OCT WAS TO HAVE A SX AND "WHEN INTUBATED HE ASPIRATED AND BP DROPPED AND DIFFICULT TO AROUSE HE STATED SX WAS CANCELED" Smoking Status: Never smoker - Past Family History Mother Family Medical History: Cancer, Thyroid Disorder Additional Family Medical History / Comment(s): THYROID CANCER Father Family Medical History: Diabetes Mellitus Medications and Allergies Home Medications Medication Instructions Recorded Confirmed Type Gemfibrozil [Lopid] 600 mg PO AC-BID 03/19/16 01/03/17 History Lansoprazole [Prevacid] 15 mg PO DAILY 03/19/16 01/03/17 History metFORMIN HCL ER [Glucophage Xr] 500 mg PO PC-SUPPER 03/19/16 01/03/17 History Lisinopril [Zestril] 20 mg PO DAILY 09/28/16 01/03/17 History Calcium Carbonate [Calcium] 600 mg PO DAILY 01/03/17 01/03/17 History Magnesium 200 mg PO DAILY 01/03/17 01/03/17 History Allergies Allergy/AdvReac Type Severity Reaction Status Date / Time No Known Allergies Allergy Verified 01/03/17 13:16 Physical Exam Vitals: Vital Signs Temp Pulse Pulse Resp BP BP BP 01/04/17 08:00 97.9 F 71 18 106/63 01/04/17 04:00 73 16 01/04/17 03:56 97.6 F 73 16 114/58 01/04/17 00:00 98.1 F 80 16 138/56 01/03/17 19:09 98.0 F 93 18 119/55 01/03/17 15:09 97.5 F L 69 18 120/72 01/03/17 14:25 67 18 118/66 01/03/17 13:30 80 18 120/60 01/03/17 12:15 96.9 F L 79 18 125/74 Pulse Ox 01/04/17 08:00 93 L 01/04/17 04:00 01/04/17 03:56 92 L 01/04/17 00:00 91 L 01/03/17 19:09 93 L 01/03/17 15:09 95 01/03/17 14:25 97 01/03/17 13:30 97 01/03/17 12:15 97 Intake and Output 01/03/17 01/04/17 01/04/17 22:59 06:59 14:59 Output Total 350 Balance -350 Output: Urine 350 Other: Voiding Method Toilet Toilet Urinal Urinal Weight 96.6 kg GENERAL: This is a 56-year-old male in no apparent distress at the time of my examination. Obese. HEENT: Head is atraumatic, normocephalic. Pupils are equal, round. Sclerae anicteric. Conjunctivae are clear. Mucous membranes of the mouth are moist. Neck is supple. There is no jugular venous distention. No carotid bruit is heard. LUNGS: Clear to auscultation no wheezes, rales or rhonchi. No chest wall tenderness is noted on palpation or with deep breathing. HEART: Regular rate and rhythm without murmurs, rubs or gallops. S1 and S2 heard. ABDOMEN: Soft, nontender. Bowel sounds are heard. No organomegaly noted. EXTREMITIES: 2+ peripheral pulses with no evidence of peripheral edema and no calf tenderness noted. NEUROLOGIC: Patient is awake, alert and oriented x3. Results 01/04/17 05:32 01/04/17 05:32 Cardiac Enzymes 01/03/17 01/03/17 01/03/17 Range/Units 12:24 12:24 18:24 AST 19 (17-59) U/L CK-MB (CK-2) 1.4 1.8 (0.0-2.4) ng/mL Troponin I <0.012 <0.012 (0.000-0.034) ng/mL 01/04/17 01/04/17 Range/Units 00:18 05:32 AST 22 (17-59) U/L CK-MB (CK-2) 1.6 (0.0-2.4) ng/mL Troponin I <0.012 (0.000-0.034) ng/mL Coagulation 01/03/17 Range/Units 12:24 PT 11.1 (9.0-12.0) sec APTT 25.2 (22.0-30.0) sec CBC 01/03/17 01/04/17 Range/Units 12:24 05:32 WBC 9.1 9.0 (3.8-10.6) k/uL RBC 4.88 4.50 (4.30-5.90) m/uL Hgb 14.3 13.0 (13.0-17.5) gm/dL Hct 43.2 40.8 (39.0-53.0) % Plt Count 285 268 (150-450) k/uL Comprehensive Metabolic Panel 01/03/17 01/04/17 Range/Units 12:24 05:32 Sodium 140 136 L (137-145) mmol/L Potassium 4.2 4.7 (3.5-5.1) mmol/L Chloride 108 H 108 H (98-107) mmol/L Carbon Dioxide 22 24 (22-30) mmol/L BUN 20 22 H (9-20) mg/dL Creatinine 0.80 0.87 (0.66-1.25) mg/dL Glucose 132 H 124 H (74-99) mg/dL Calcium 9.1 8.9 (8.4-10.2) mg/dL AST 19 22 (17-59) U/L ALT 35 30 (21-72) U/L Alkaline Phosphatase 66 53 (38-126) U/L Total Protein 6.6 6.0 L (6.3-8.2) g/dL Albumin 3.9 3.2 L (3.5-5.0) g/dL Current Medications Generic Name Dose Route Start Last Admin Trade Name Freq PRN Reason Stop Dose Admin Acetaminophen 650 mg 01/03/17 13:48 Tylenol Tab PO Q6HR PRN Mild Pain or Fever > 100.5 Docusate Sodium 100 mg 01/03/17 23:00 01/03/17 23:24 Colace PO 100 mg DAILY YESSICA Administration Gemfibrozil 600 mg 01/03/17 17:30 01/03/17 17:12 Lopid PO 600 mg AC-BID YESSICA Administration Lisinopril 20 mg 01/04/17 09:00 Zestril PO DAILY YESSICA Magnesium Oxide 200 mg 01/04/17 12:00 Mag-Ox PO 1200 YESSICA Morphine Sulfate 4 mg 01/03/17 13:48 01/03/17 19:55 Morphine Sulfate (Inj) IV 4 mg Q4HR PRN Administration Severe Pain Naloxone HCl 0.2 mg 01/03/17 13:48 Narcan IV Q2M PRN Opioid Reversal Ondansetron HCl 4 mg 01/03/17 13:48 Zofran IVP Q8HR PRN Nausea And Vomiting Pantoprazole Sodium 40 mg 01/04/17 07:30 Protonix PO AC-BRKFST YESSICA Intake and Output 01/03/17 01/04/17 01/04/17 22:59 06:59 14:59 Output Total 350 Balance -350 Output: Urine 350 Other: Voiding Method Toilet Toilet Urinal Urinal Weight 96.6 kg 01/04/17 05:32 01/04/17 05:32 Assessment and Plan Assessment: ASSESSMENT 1. Chest pain, atypical after minor outpatient procedure 2. Essential hypertension 3. Hyperlipidemia 4. Diabetes mellitus PLAN Mr. Raza had a normal stress test earlier this year with Dr. Rosa. EKG and cardiac enzymes have ruled out an acute coronary event. He is stable for discharge home to see Dr. Rosa in the next 2 weeks for follow-up. Thank you kindly for this consultation. Nurse Practitioner note has been reviewed, I agree with a documented findings and plan of care. Patient was seen and examined.
--- NOTE | 2017-01-04 16:21 | P.DS ---
Providers Date of admission: 01/03/17 13:49 Attending physician: Yaya Xie Consults: 01/03/17 13:49 Consult Physician Urgent Consulting Provider: Moe Woods Consult Reason/Comments: Chest pain Do you want consulting provider notified?: Yes, Notify in am Primary care physician: Amor Chavez [facility] Course: Patient was ruled out acute coronary syndromes, was a valid by cardiology patient had a recent stress test which was negative patient is clinically doing well without any chest pain patient will be discharged today. PHYSICAL EXAMINATION: GENERAL: The patient is alert and oriented x3, not in any acute distress. Well developed, well nourished. HEENT: Pupils are round and equally reacting to light. EOMI. No scleral icterus. No conjunctival pallor. Normocephalic, atraumatic. No pharyngeal erythema. No thyromegaly. CARDIOVASCULAR: S1 and S2 present. No murmurs, rubs, or gallops. PULMONARY: Chest is clear to auscultation, no wheezing or crackles. ABDOMEN: Soft, nontender, nondistended, normoactive bowel sounds. No palpable organomegaly. MUSCULOSKELETAL: No joint swelling or deformity. EXTREMITIES: No cyanosis, clubbing, or pedal edema. NEUROLOGICAL: Gross neurological examination did not reveal any focal deficits. SKIN: No rashes. For his medical problems please refer to my hpf from yesterday. Patient Condition at Discharge: Stable Plan - Discharge Summary Discharge Rx Participant: No New Discharge Prescriptions: No Action metFORMIN HCL ER [Glucophage Xr] 500 mg PO PC-SUPPER Lansoprazole [Prevacid] 15 mg PO DAILY Gemfibrozil [Lopid] 600 mg PO AC-BID Lisinopril [Zestril] 20 mg PO DAILY Magnesium 200 mg PO DAILY Calcium Carbonate [Calcium] 600 mg PO DAILY Discharge Medication List Gemfibrozil [Lopid] 600 mg PO AC-BID 03/19/16 [History] Lansoprazole [Prevacid] 15 mg PO DAILY 03/19/16 [History] metFORMIN HCL ER [Glucophage Xr] 500 mg PO PC-SUPPER 03/19/16 [History] Lisinopril [Zestril] 20 mg PO DAILY 09/28/16 [History] Calcium Carbonate [Calcium] 600 mg PO DAILY 01/03/17 [History] Magnesium 200 mg PO DAILY 01/03/17 [History] Follow up Appointment(s)/Referral(s): Howard Chavira MD [STAFF PHYSICIAN] - 3 Days Jamel Pringle MD [STAFF PHYSICIAN] - 1 Week Patient Instructions/Handouts: Chest Pain (GEN) Discharge Disposition: HOME SELF-CARE
== END 2017-01-04 13:35 | disposition home or self-care (01) ==
LOC: EC 12:10 → 3OBS 13:49
PROVIDERS: ADMIT Internal Medicine; ATTEND Internal Medicine
DX: R07.89 Other chest pain (principal); R10.13 Epigastric pain; R06.02 Shortness of breath; E87.1 Hypo-osmolality and hyponatremia; G93.41 Metabolic encephalopathy; I10 Essential (primary) hypertension; E11.9 Type 2 diabetes mellitus without complications; E78.5 Hyperlipidemia, unspecified; K21.9 Gastro-esophageal reflux disease without esophagitis; Z79.899 Other long term (current) drug therapy; Z79.84 Long term (current) use of oral hypoglycemic drugs; Z87.891 Personal history of nicotine dependence; Z80.8 Family history of malignant neoplasm of other organs or systems; E66.9 Obesity, unspecified; Z68.37 Body mass index [BMI] 37.0-37.9, adult; Z98.890 Other specified postprocedural states
CPT/HCPCS: 99285; 96375 ×2; 96361 ×4; 96365 ×2; 96376; 36415; 93005; 83880; 80053 ×2; 82150; 82550 ×2; 82553 ×2; 83690; 83735 ×2; 84484 ×2; 85025 ×2; 85610; 85730; 83036; 71020; G0378 ×2; J2270; J3475